=== PATIENT | female | born 1945 | race Caucasian/White ===

== ENCOUNTER 2022-03-11 11:46 | Emergency (ER) | payer OTHER, MEDICARE ==
[2022-03-11 13:05] LABS: BASOPHIL 0.5 % (0-2); EOSINOPHIL 3.4 % (0-7); HCT 42.8 % (37.0-47.0); HGB 13.9 g/dl (12.5-16.0); LYMPHOCYTE 13.3 % (15-48); MCH 30.9 pg (25.0-31.0); MCHC 32.5 g/dL (32.0-36.0); MCV 95.1 fL (78.0-100.0); MONOCYTE 5.9 % (0-12); MPV 10.6 fL (6.0-9.5); NEUTROPHIL 76.6 % (41-80); NRBC 0; PLT 191 K/uL (150-400); RDW 13.9 % (11.5-14.0); WBC 10.8 K/uL (4.0-10.5)
[2022-03-11 13:20] LABS: BUN/CREAT RATIO (CALC) 33.1 RATIO; CREATININE 1.21 mg/dL (0.51-0.95); POTASSIUM 3.5 mmol/L (3.5-5.1)
[2022-03-11 13:55] LABS: BILIRUBIN NEGATIVE (NEGATIVE); BLOOD TRACE-INTACT Ery/uL (NEGATIVE); CLARITY CLEAR (CLEAR); COLOR YELLOW (YELLOW); GLUCOSE (U) NORMAL (NORMAL); LEUKOCYTES NEGATIVE Leu/uL (NEGATIVE); NITRITE NEGATIVE (NEGATIVE); PROTEIN NEGATIVE (NEGATIVE); SPECIFIC GRAVITY <=1.005 (1.001-1.030); UROBILINOGEN 0.2 mg/dL (0.2-1.0); pH 5.5 (5.0-9.0)
[2022-03-11 14:24] LABS: BACTERIA TRACE; URINARY RBC RARE
[2022-03-11 14:25] LABS: URIC ACID CRYSTALS TRACE
[2022-03-11] MEDS ORDERED: BACLOFEN 10MG T10 MG PO (15:10)
[2022-03-11] MEDS ORDERED: ULTRAM50 MG PO (15:10)
== END 2022-03-11 17:23 | disposition home or self-care (01) ==
LOC: FER 11:46
PROVIDERS: Nurse Practitioner Family
DX: S30.1XXA Contusion of abdominal wall, initial encounter (principal); S40.021A Contusion of right upper arm, initial encounter; M54.2 Cervicalgia; I10 Essential (primary) hypertension; E11.9 Type 2 diabetes mellitus without complications; E03.9 Hypothyroidism, unspecified; Z79.899 Other long term (current) drug therapy; Z88.5 Allergy status to narcotic agent; Z88.8 Allergy status to other drugs, medicaments and biological substances; V49.50XA Passenger injured in collision with unspecified motor vehicles in traffic accident, initial encounter
CPT/HCPCS: 36415; 70450; 71260; 72125; 73060; 80048; 81001; 85025; J7030